=== PATIENT | female | born 1970 | race Caucasian/White ===

== ENCOUNTER 2017-01-05 12:13 | Emergency (ER) | payer BC, MEDICAID ==
--- NOTE | 2017-01-05 12:28 | UC ---
Lower Extremity/Ankle HPI - HPI Summary HPI Summary: pain in ankle left, for over a month after hiking, had an inversion injury painful to wb - History of Current Complaint Stated Complaint: ANKLE INJURY Time Seen by Provider: 01/05/17 12:23 Hx Obtained From: Patient Hx Last Menstrual Period: may 22, 2013 ?: No Onset/Duration: Gradual Onset, Worse Since - inversion injury 01/02/17 Severity Initially: Mild Severity Currently: Moderate Aggravating Factor(s): Standing, Ambulation Alleviating Factor(s): Rest, Elevation Able to Bear Weight: Yes - with pain - Allergies/Home Medications Allergies/Adverse Reactions: Allergies Allergy/AdvReac Type Severity Reaction Status Date / Time Nitrofurantoin Allergy Rash Verified 04/23/16 11:06 [From Macrobid] Sulfamethoxazole Allergy Rash Verified 04/23/16 11:06 w/Trimethoprim [From Bactrim] Home Medications: Home Medications Lisinopril [Zestril 20 MG-] 20 mg PO DAILY 01/05/17 [History Confirmed 01/05/17] PMH/Surg Hx/FS Hx/Imm Hx Previously Healthy: No Endocrine History Of: Reports: Diabetes - type 2 diabetes mellitus - 3rd years. Good ont, Thyroid Disease, Hypothyroidism - She has had primary hypothyroidism 15 years Denies: Hyperthyroidism Cardiovascular History Of: Denies: Cardiac Disorders, Hypertension Respiratory History Of: Reports: Asthma - secondary to allergies Denies: COPD GI/ History Of: Denies: Ulcer Neurological History Of: Denies: TIA, Seizures Psychological History Of: Denies: Anxiety, Depression Cancer History Of: Denies: Breast Cancer - Surgical History Surgical History: Yes Surgery Procedure, Year, and Place: cholecarpel tunnel w/ tendon release (2002 and 2003). Gall bladder removed (2000) - Family History Known Family History: Positive: None - Social History Occupation: Unemployed Lives: With Family Alcohol Use: None Substance Use Type: None Smoking Status (MU): Never Smoked Tobacco Have You Smoked in the Last Year: No Review of Systems Constitutional: Negative Skin: Negative Eyes: Negative ENT: Negative Respiratory: Negative Cardiovascular: Negative Gastrointestinal: Negative Genitourinary: Negative Motor: Negative Musculoskeletal: Arthralgia - left ankle swelling Neurological: Negative Psychological: Negative All Other Systems Reviewed And Are Negative: Yes Physical Exam Triage Information Reviewed: Yes Appearance: Well-Appearing, No Pain Distress, Obese Vital Signs Reviewed: Yes Eye Exam: Normal Eyes: Positive: Conjunctiva Clear ENT Exam: Normal ENT: Positive: Normal ENT inspection, Hearing grossly normal. Negative: Nasal congestion, Nasal drainage, Trismus, Muffled/hoarse voice Neck exam: Normal Neck: Positive: Supple, Nontender, No Lymphadenopathy Respiratory Exam: Normal Respiratory: Positive: Chest non-tender, Lungs clear, Normal breath sounds, No respiratory distress, No accessory muscle use Cardiovascular Exam: Normal Cardiovascular: Positive: RRR, Pulses Normal, Brisk Capillary Refill Musculoskeletal Exam: Normal Musculoskeletal: Positive: Strength Intact, ROM Intact, No Edema Neurological Exam: Normal Neurological: Positive: Alert, Muscle Tone Normal Psychological Exam: Normal Psychological: Positive: Normal Response To Family Skin Exam: Normal Diagnostics - Radiology No standard instances Xray Interpretation: Positive (See Comments) - soft tissue swelling Lower Extremity Course/Dx - Course Course Of Treatment: michael wrap, cam walker, rice follow with ortho - Differential Dx/Diagnosis Differential Diagnosis/HQI/PQRI: Contusion, Fracture (Closed), Sprain, Strain Provider Diagnoses: ankle contusion (L) Discharge - Discharge Plan Condition: Stable Disposition: HOME Patient Education Materials: RICE Therapy (ED), Swollen Ankle Joint (ED), Ankle Strain (ED) Referrals: Cee Briones MD [Medical Doctor] - 3 Days Nicolette Cardona MD [Primary Care Provider] -
[2017-01-05 12:31] VITALS: BP 140/80
--- NOTE | 2017-01-05 13:01 | RAD ---
HISTORY: Injury COMPARISONS: None VIEWS: 3, Frontal, lateral, and oblique views of the left ankle FINDINGS: BONE DENSITY: Normal. BONES: There is no displaced fracture. There are calcaneal enthesophytes JOINTS: There is no arthropathy. ALIGNMENT: There is no dislocation. SOFT TISSUES: There is circumferential soft tissue swelling OTHER FINDINGS: None. IMPRESSION: SOFT TISSUE SWELLING. NO ACUTE OSSEOUS INJURY. IF SYMPTOMS PERSIST, RECOMMEND REPEAT IMAGING.
== END 2017-01-05 13:32 | disposition home or self-care (01) ==
LOC: UCEAST 12:13
DX: S93.402A Sprain of unspecified ligament of left ankle, initial encounter (principal); Y93.01 Activity, walking, marching and hiking; W18.30XA Fall on same level, unspecified, initial encounter; E11.9 Type 2 diabetes mellitus without complications; J45.909 Unspecified asthma, uncomplicated
CPT/HCPCS: 99213; G0463

== ENCOUNTER 2017-10-31 12:06 | Inpatient (IN) | payer BC, MEDICAID ==
--- NOTE | 2017-10-16 20:14 | HP ---
CC: Nicolette Cardona MD * PREOPERATIVE HISTORY AND PHYSICAL: DATE OF ADMISSION: 10/31/17 This patient is scheduled for AA admission by Dr. Kebede on 10/31/17. ATTENDING SURGEON: Evan Kebede MD * (dictated by Ruth Carlin NP). CHIEF COMPLAINT: Colon polyp. HISTORY OF PRESENT ILLNESS: The patient is a 47-year-old morbidly obese female with type [address] Kebede after undergoing evaluation in 2016 for clinical severe obesity. The patient had strongly considered weight loss surgery, but she did put this on hold and is currently pursuing medically supervised weight loss at [facility] for [facility]abolic [facility]ariat[facility]. More recently, she was experiencing intermittent constipation and diarrhea and therefore, underwent colonoscopy. The colonoscopy revealed a tubulovillous adenoma with focal high- grade dysplasia at the hepatic flexure, the lesion was described as 4 cm and polypoid and was tattooed by the colonoscopist. Other biopsies in the right colon, left colon, and rectum showed no pathologic abnormality. She denies abdominal pain or blood per rectum. She is intentionally trying to lose weight. Dr. Kebede examined the patient and reviewed the findings with her and has recommended laparoscopic endoscopic colon polypectomy, possible partial colectomy. Dr. Kebede described the nature of the surgical procedure, the rationale for the procedure, the relevant risks and benefits, the typical hospitalization, and today I reviewed the typical postoperative care and recovery. The patient has had a chance to ask questions and stated that she understands the information and is satisfied with the answers given to her questions. She will sign surgical consent on the day of surgery. She will take a bowel cleansing prep on the day before surgery consisting of clear liquids, Colyte laxative, metronidazole, and Flagyl. PAST MEDICAL HISTORY: Significant for type 2 diabetes, polycystic ovarian syndrome, hypothyroidism, GERD, sleep apnea and cannot tolerate CPAP, hypertension, and asthma. PAST SURGICAL HISTORY: Open cholecystectomy, 2000; right carpal tunnel release , 2002. OB HISTORY: 2, miscarriage 2. She is up-to-date with breast exam, mammogram, and pelvic exam within the past year. Last menstrual cycle started 10/06/17. MEDICATIONS: 1. Metformin 1000 mg p.o. b.i.d., and she will hold the metformin on the day before surgery while she is doing her bowel cleansing prep. 2. Levothyroxine 300 mcg daily. 3. Protonix 40 mg p.o. daily. 4. Sertraline 50 mg p.o. daily. 5. Iron 325 mg daily. 6. Lisinopril 40 mg p.o. daily. 7. Januvia 50 mg p.o. daily. 8. Vitamin D supplement 1000 International Units 2 tablets daily. 9. Nasonex 50 mcg per actuation 2 sprays in each nostril daily. 10. ProAir 2 puffs q.4 hours p.r.n. 11. Clobetasol 0.05%, apply to areas as directed b.i.d. ALLERGIES: BACTRIM and MACROBID, both cause severe sunburn-like rash on her face and arms. FAMILY HISTORY: No known anesthesia complications, bleeding tendencies, or clotting disorders. SOCIAL HISTORY: She is and lives with her adopted children. 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 She denies the use of alcohol or other substances. REVIEW OF SYSTEMS: Constitutional: No fevers, chills, night sweats or excessive fatigue. Endocrine: Type 2 diabetes, most recent hemoglobin A1c 6.5% ; hypothyroidism, on replacement. Hematologic: No easy bruising or bleeding. No history of blood transfusions. Respiratory: No dyspnea on exertion or chronic cough. Cardiovascular: No anginal chest pain or palpitations. Gastrointestinal: No nausea or vomiting; intermittent diarrhea alternating with constipation that led to the colonoscopy and the finding of the tubulovillous adenoma at the hepatic flexure; no blood per rectum. Heartburn controlled with Protonix. Genitourinary: No dysuria. Musculoskeletal: No complaints of back or joint pain. Neurologic: No headache, blurred vision, areas of focal weakness , or numbness. General: No previous anesthesia complications. No history of deep vein thrombosis or pulmonary embolism. PHYSICAL EXAMINATION GENERAL SURVEY: The patient is a 47-year-old morbidly obese female, well developed, in no acute distress. VITAL SIGNS: Height 5 feet 4.5 Inches, weight 266 pounds. Blood pressure 122/ 80, pulse 78 and regular, respiratory rate 18, and temperature 97.9 tympanic. Body mass index 44.9. HEENT: Benign. NECK: Supple. No cervical lymphadenopathy. BACK: No CVA tenderness. LUNGS: Breath sounds bilaterally clear and equal. HEART: Regular rate and rhythm. No murmurs or rubs appreciated. ABDOMEN: Obese. Active bowel sounds. Well-healed right upper quadrant surgical scar and umbilical trocar scar. Soft, nondistended, nontender throughout. No obvious masses, organomegaly, or evidence of ventral hernias. Pelvic and rectal exams done within the past year, not repeated. EXTREMITIES: Warm without edema or skin ulceration. NEUROLOGIC: Alert and oriented x3. Steady gait. SKIN: Warm, dry, and intact. IMPRESSION: Tubulovillous adenoma with focal high-grade dysplasia at the hepatic flexure. PLAN: AA admission to Dr. Kebede's service on 10/31/17 for laparoscopic endoscopic colon polypectomy, possible partial colectomy. The patient will take a preoperative bowel cleansing prep on the day before surgery consisting of clear liquids, Colyte laxative, neomycin, and metronidazole. REBECCA CARLIN NP [id number]/[facility] #: [id number] MORENITA
[~2017-10-31 12:06] MED LIST: Buffered Lidocaine 0.9% SYRIN* 5 ML/SYR SYRINGE INTRADERM ONE; Dexamethasone IV* 4 MG/ML 1 ML (4 MG) IV SLOW PU ONE; ERTApenem(*) 1 GM in NS 0.9% 50 ML* 50 ML IVPB SCH; Famotidine TAB* 20 MG PO ONE
[2017-10-31] MEDS ORDERED: Buffered Lidocaine 0.9% SYRIN* 5 ML/SYR SYRINGE ONE (12:19)
[2017-10-31] MEDS ORDERED: Famotidine IV* 10 MG/ML 2 ML (20 mg) ONE (12:19)
[2017-10-31] MEDS ORDERED: Dexamethasone IV* 4 MG/ML 1 ML (4 MG) ONE (12:19)
[2017-10-31] MEDS ORDERED: Heparin VIAL(*) 5000 UNITS/ML VIAL (FIVE THOUSAND) ONE (12:19)
[2017-10-31] MEDS ORDERED: Midazolam* 1 MG/ML 10 ML VIAL (10 MG) ONE (12:51)
[2017-10-31] MEDS ORDERED: fentaNYL* 50 MCG/ML 5 ML VIAL (250 MCG VIAL) ONE (12:51)
[2017-10-31] MEDS ORDERED: Lidocaine 2% PF * 5 ML VIAL ONE (12:52)
[2017-10-31] MEDS ORDERED: Propofol* 10 MG/ML 20 ML BTL IV PUSH ONE (12:52)
[2017-10-31] MEDS ORDERED: Atracurium* 10 MG/ML 10 ML VIAL ONE (12:52)
[2017-10-31] MEDS ORDERED: Ketorolac INJ* 30 MG/ML 1 ML VIAL ONE (12:52)
[2017-10-31] MEDS ORDERED: Ondansetron INJ* 2 MG/ML VIAL ONE (12:52)
[2017-10-31] MEDS ORDERED: Desflurane* 240 ML INH ONE (13:27)
[2017-10-31] MEDS ORDERED: Bupivacaine 0.25% SDV* 30 ML ONE (13:29)
[2017-10-31] MEDS ORDERED: Glycopyrrolate IV* 0.2 MG/ML 1 ML VIAL ONE (14:05)
[2017-10-31] MEDS ORDERED: Atropine 1MG/ML INJ* 1 ML VIAL ONE (14:35)
[2017-10-31] MEDS ORDERED: fentaNYL* 50 MCG/ML 2 ML VIAL (100 MCG VIAL) ONE ×4 (14:40→19:26)
[2017-10-31] MEDS ORDERED: Ondansetron INJ* 2 MG/ML VIAL IV PRN ×2 (16:13→17:44)
[2017-10-31] MEDS ORDERED: Scopolamine 1.5 mg* PATCH TRANSDERM PRN (16:13)
[2017-10-31] MEDS ORDERED: DiMENhydriNATE IV* 50 MG/ML VIAL IV PUSH PRN (16:13)
--- NOTE | 2017-10-31 17:41 | SURGPN ---
Brief Operative Note - Surgery Procedures: Procedures Pre-OP Diagnoses: Colon polyp Post-op Diagnosis: same Procedure: Laparoscopic assisted Right hemicolectomy Surgeon: Yandy Asst: Rashi Anesthesia: CESILIA Hines EBL: <100cc IVF: 3000cc LR Specimen: R colon Drains: Jimenez
[2017-10-31] MEDS ORDERED: Albuterol HFA INHALER* 8 gm MDI INH PRN (17:48)
[2017-10-31] MEDS ORDERED: HYDROmorphone INJ* 1 MG/ML CARPUJECT SYRINGE ONE (18:04)
[2017-10-31] MEDS ORDERED: DiMENhydriNATE IV* 50 MG/ML VIAL ONE (18:04)
[2017-10-31] MEDS ORDERED: Scopolamine 1.5 mg* PATCH ONE (18:04)
[2017-10-31] MEDS: fentaNYL* 50 MCG/ML 2 ML VIAL (100 MCG VIAL) IV PRN ×4 (18:06→19:34)
[2017-10-31] MEDS ORDERED: Morphine INJ* 2 MG/ML 1 ML SYRINGE (TWO MG - NEW SYRINGE VERSION) IV PRN (18:32)
[2017-10-31] MEDS: HYDROmorphone INJ* 1 MG/ML CARPUJECT SYRINGE IV PRN ×5 (19:08→19:42)
[2017-10-31] MEDS: Heparin VIAL(*) 5000 UNITS/ML VIAL (FIVE THOUSAND) SUBCUT SCH (20:44)
[2017-10-31] MEDS: HYDROcodone/ACETAMIN 5-325 MG* 1 TAB PO PRN (20:51)
[2017-11-01] MEDS: Ketorolac INJ* 30 MG/ML 1 ML VIAL IV PRN ×3 (00:09→21:19)
[2017-11-01] MEDS: HYDROcodone/ACETAMIN 5-325 MG* 1 TAB PO PRN ×5 (01:56→23:27)
[2017-11-01] MEDS: Levothyroxine TAB* 150 MCG TAB PO SCH (05:51)
[2017-11-01] MEDS: Heparin VIAL(*) 5000 UNITS/ML VIAL (FIVE THOUSAND) SUBCUT SCH ×3 (05:52→21:19)
[2017-11-01 06:29] LABS: Hematocrit 33 % (35-47); Hemoglobin 10.9 g/dl (12.0-16.0); Mean Corpuscular HGB Conc 33 g/dl (31-36); Mean Corpuscular Hemoglobin 31 pg (27-31); Mean Corpuscular Volume 93 fL (80-97); Mean Platelet Volume 7 um3 (7.4-10.4); Red Cell Distribution Width 13 % (10.5-15); White Blood Count 13.4 10^3/ul (3.5-10.8)
[2017-11-01 06:36] LABS: Albumin 3.2 g/dL (3.2-5.2); BUN/Creatinine Ratio 22.4 (8-20); Calcium 8.6 mg/dL (8.6-10.3); EGFR African American 121.3 (>60); EGFR Non-African American 94.3 (>60); Globulin 3.1 g/dL (2-4); Potassium 4.1 mmol/L (3.5-5.0); Total Bilirubin 0.4 mg/dL (0.2-1.0); Total Protein 6.3 g/dL (6.4-8.9)
[2017-11-01] MEDS: Omeprazole CAP* 20 MG PO SCH (09:34)
[2017-11-01] MEDS: Sertraline* 50 MG TAB PO SCH (09:34)
--- NOTE | 2017-11-01 12:58 | PN ---
Progress Note - Progress Note Date of Service: 11/01/17 SOAP: Subjective: Pt seen and examined. Feels well. some abdo pain. no flatus. No N/V Objective: af vss uo good a and o x3 abdo: soft/ ND/ incisional tenderness dressing intact no calf tenderness Laboratory Results - last 24 hr 11/01/17 11/01/17 06:06 06:06 WBC 13.4 H RBC 3.50 L Hgb 10.9 L Hct 33 L MCV 93 MCH 31 MCHC 33 RDW 13 Plt Count 198 MPV 7 L Neut % (Auto) 86.9 H Lymph % (Auto) 9.0 L [place] % (Auto) 4.0 Eos % (Auto) 0 Baso % (Auto) 0.1 Absolute Neuts (auto) 11.6 H Absolute Lymphs (auto) 1.2 Absolute Monos (auto) 0.5 Absolute Eos (auto) 0 Absolute Basos (auto) 0 Absolute Nucleated RBC 0.01 Nucleated RBC % 0.1 Sodium 135 Potassium 4.1 Chloride 105 Carbon Dioxide 23 Anion Gap 7 BUN 15 Creatinine 0.67 Est GFR ( Amer) 121.3 Est GFR (Non-Af Amer) 94.3 BUN/Creatinine Ratio 22.4 H Glucose 143 H Calcium 8.6 Total Bilirubin 0.40 AST 16 ALT 18 Alkaline Phosphatase 71 Total Protein 6.3 L Albumin 3.2 Globulin 3.1 Albumin/Globulin Ratio 1.0 Assessment: [POD 1 R hemicolectomy Plan: clears OOB labs in am f/u path
[2017-11-02 05:44] LABS: Hematocrit 29 % (35-47); Hemoglobin 9.8 g/dl (12.0-16.0); Mean Corpuscular HGB Conc 34 g/dl (31-36); Mean Corpuscular Hemoglobin 32 pg (27-31); Mean Corpuscular Volume 93 fL (80-97); Mean Platelet Volume 7 um3 (7.4-10.4); Red Blood Count 3.12 10^6/ul (4.0-5.4); Red Cell Distribution Width 13 % (10.5-15); White Blood Count 7.9 10^3/ul (3.5-10.8)
[2017-11-02] MEDS: Levothyroxine TAB* 150 MCG TAB PO SCH (05:53)
[2017-11-02] MEDS: HYDROcodone/ACETAMIN 5-325 MG* 1 TAB PO PRN ×2 (05:53→15:42)
[2017-11-02] MEDS: Heparin VIAL(*) 5000 UNITS/ML VIAL (FIVE THOUSAND) SUBCUT SCH ×3 (05:54→22:07)
[2017-11-02 05:57] LABS: BUN/Creatinine Ratio 17.6 (8-20); Calcium 8.3 mg/dL (8.6-10.3); EGFR African American 119.3 (>60); EGFR Non-African American 92.7 (>60); Magnesium 1.8 mg/dL (1.9-2.7); Phosphorus 2.3 mg/dL (2.5-5.0); Potassium 3.4 mmol/L (3.5-5.0)
[2017-11-02] MEDS ORDERED: Potassium Phosphate IV* 15 MMOLE in NS 0.9% 250 ML* 250 ML IVPB ONE (08:39)
[2017-11-02] MEDS: Sertraline* 50 MG TAB PO SCH (09:17)
[2017-11-02] MEDS: Omeprazole CAP* 20 MG PO SCH (09:17)
[2017-11-02] MEDS: Ketorolac INJ* 30 MG/ML 1 ML VIAL IV PRN ×2 (09:21→15:41)
--- NOTE | 2017-11-02 09:33 | PN ---
Progress Note - Progress Note Date of Service: 11/02/17 SOAP: Subjective: POD #2 S/P lap assisted Right colectomy tolerating clears,no nausea,no flatus up walking,using inspiron,good pain control [] Objective:afeb,VSS,large uo lungs:clear bilat heart:RRR Abd:+bs,obese,soft;midline incision intact with mely,no erythema,serosanguinous drainage soaked 4x4's; dressing changed ,sterile 4x4's applied;all other incisions intact and covered with tegaderm Ext:nontender,no edema [] Assessment:Doing well POD#2 S/P lap R colectomy [] Plan:continue clear liquids until passes flatus;watch midline incision; encourage walking and inspiron []
[2017-11-02] MEDS ORDERED: Magnesium Sulfate 1 GM IV* 1 GM/100 ML BAG IV ONE ×2 (14:30→14:45)
--- NOTE | 2017-11-02 15:31 | PN ---
Progress Note - Progress Note Date of Service: 11/02/17 SOAP: Subjective: Pt seen and examined. Feels well. some abdo pain. Positive flatus, BM no nausea. Dressing changed and continues to drain. No lightheadedness, dizziness Objective: af vss a and o x3 abdo: soft/ ND/ incisional tenderness dressing changed at midline, serosang drainage. no calf tenderness Laboratory Results - last 24 hr 11/02/17 11/02/17 05:22 05:22 WBC 7.9 RBC 3.12 L Hgb 9.8 L Hct 29 L MCV 93 MCH 32 H MCHC 34 RDW 13 Plt Count 159 MPV 7 L Sodium 134 Potassium 3.4 L Chloride 104 Carbon Dioxide 26 Anion Gap 4 BUN 12 Creatinine 0.68 Est GFR ( Amer) 119.3 Est GFR (Non-Af Amer) 92.7 BUN/Creatinine Ratio 17.6 Glucose 119 H Calcium 8.3 L Phosphorus 2.3 L Magnesium 1.8 L Assessment: POD2 r hemicolectomy, Plan: advance diet abdo binder replete lytes change IVF labs in am
[2017-11-02] MEDS ORDERED: D5W 1/2 NS 40 Meq KCL 1000 ML* 1,000 ML IV SCH (16:00)
[2017-11-02] MEDS: metFORMIN* 1,000 MG TAB PO SCH (22:07)
[2017-11-03] MEDS: HYDROcodone/ACETAMIN 5-325 MG* 1 TAB PO PRN ×2 (01:59→08:18)
[2017-11-03] MEDS: Levothyroxine TAB* 150 MCG TAB PO SCH (05:26)
[2017-11-03] MEDS: Heparin VIAL(*) 5000 UNITS/ML VIAL (FIVE THOUSAND) SUBCUT SCH (05:26)
[2017-11-03 05:38] LABS: Hematocrit 29 % (35-47); Hemoglobin 9.9 g/dl (12.0-16.0); Mean Corpuscular HGB Conc 34 g/dl (31-36); Mean Corpuscular Hemoglobin 32 pg (27-31); Mean Corpuscular Volume 92 fL (80-97); Mean Platelet Volume 7 um3 (7.4-10.4); Red Blood Count 3.13 10^6/ul (4.0-5.4); Red Cell Distribution Width 13 % (10.5-15); White Blood Count 7.6 10^3/ul (3.5-10.8)
[2017-11-03 05:51] LABS: BUN/Creatinine Ratio 13.1 (8-20); Calcium 8.4 mg/dL (8.6-10.3); EGFR African American 135.2 (>60); EGFR Non-African American 105.1 (>60); Potassium 3.9 mmol/L (3.5-5.0)
[2017-11-03] MEDS: metFORMIN* 1,000 MG TAB PO SCH (08:19)
[2017-11-03] MEDS: Sertraline* 50 MG TAB PO SCH (08:19)
[2017-11-03] MEDS: Omeprazole CAP* 20 MG PO SCH (08:19)
[2017-11-03] MEDS ORDERED: CMCS SitaGLIPtin (NF) 25 MG TAB PO SCH (09:00)
--- NOTE | 2017-11-03 10:45 | PN ---
Progress Note - Progress Note Date of Service: 11/03/17 Note: Surgery Ms. Meyers is feeling well enough to go home, she has not needed anything for pain other than a headache; she is passing flatus and stool. She has tolerated a full liquid diet. Vital Signs 11/02/17 11/02/17 11/02/17 11:20 15:42 16:00 Temperature 97.2 F Pulse Rate 64 Respiratory 14 16 Rate Blood Pressure 129/63 (mmHg) O2 Sat by Pulse 96 99 Oximetry 11/02/17 11/02/17 11/02/17 16:50 19:32 19:42 Temperature 99.2 F 97.6 F Pulse Rate 72 63 Respiratory 16 16 16 Rate Blood Pressure 146/82 149/68 (mmHg) O2 Sat by Pulse 99 97 Oximetry 11/02/17 11/03/17 11/03/17 23:22 01:59 03:17 Temperature 98.1 F 98.2 F Pulse Rate 77 68 Respiratory 16 18 16 Rate Blood Pressure 146/73 133/56 (mmHg) O2 Sat by Pulse 94 93 Oximetry 11/03/17 11/03/17 11/03/17 04:06 08:08 08:18 Temperature 97.5 F Pulse Rate 66 Respiratory 18 16 16 Rate Blood Pressure 147/73 (mmHg) O2 Sat by Pulse 99 Oximetry Abd: good BS, soft, non-tender. Incisions: clean and dry; no further drainage from midline site. Intake & Output 11/02/17 11/03/17 11/03/17 22:59 06:59 14:59 Intake Total 1665 Output Total 1150 900 900 Balance 515 -900 -900 Intake: IV Fluids 980 LR 980 IVPB 475 Magnesium 220 Potassium Phosphate 255 Oral 210 Output: NG Tube Drainage Amount 50 Urine 1100 900 900 Other: Estimated Void Medium Laboratory Results - last 24 hr 11/03/17 11/03/17 05:23 05:23 WBC 7.6 RBC 3.13 L Hgb 9.9 L Hct 29 L MCV 92 MCH 32 H MCHC 34 RDW 13 Plt Count 171 MPV 7 L Neut % (Auto) 67.5 Lymph % (Auto) 24.1 L [place] % (Auto) 3.7 Eos % (Auto) 4.2 Baso % (Auto) 0.5 Absolute Neuts (auto) 5.1 Absolute Lymphs (auto) 1.8 Absolute Monos (auto) 0.3 Absolute Eos (auto) 0.3 Absolute Basos (auto) 0 Absolute Nucleated RBC 0 Nucleated RBC % 0 Sodium 137 Potassium 3.9 Chloride 107 Carbon Dioxide 25 Anion Gap 5 BUN 8 Creatinine 0.61 Est GFR ( Amer) 135.2 Est GFR (Non-Af Amer) 105.1 BUN/Creatinine Ratio 13.1 Glucose 130 H Calcium 8.4 L POD#3 s/p lap assisted right hemicolectomy; doing well. Can go home and f/u as outpt.
[2017-11-03 11:59] VITALS: BP 148/74
[2017-11-03] MEDS ORDERED: Scopolamine PATCH Remove* 1 NOTE MISC PATCH OFF ONE (16:14)
--- NOTE | 2017-11-07 00:03 | OP ---
CC: [facility]; Dr. Nicolette Cardona; Dr. Jsoe Turner * DATE OF OPERATION: 10/31/17 - ROOM #342 DATE OF : 70 SURGEON: Evan Kebede MD IV RN: Dr. Markham. ANESTHESIOLOGIST: Dr. Hines. ANESTHESIA: General anesthesia. PRE-OP DIAGNOSIS: Colon polyp. POST-OP DIAGNOSIS: Colon polyp. OPERATIVE PROCEDURE: Laparoscopic-assisted right hemicolectomy. ESTIMATED BLOOD LOSS: Less than 100 cc. IV FLUIDS: 3000 cc of lactated Ringers. SPECIMENS: Right colon. DRAINS: A Jimenez catheter. INDICATION: Ms. Meyers is a 47-year-old female, worked up as an outpatient, known to have a tubulovillous adenoma at the hepatic flexure that was tattooed. Plan was for a combined laparoscopic endoscopic removal. On the day of surgery, it was apparent that we did not have colonoscopy availability; however , given the pathologic findings of the colonoscopy to be tubulovillous adenoma with focal high- grade dysplasia at 4 cm in size, the thinking was that the patient would be best served with either a segmental colectomy or a polypectomy that was taken out under direct vision rather than endoscopic vision. I described this to the patient and we received consent for laparoscopic-assisted polypectomy versus segmental colectomy outlining the details of this procedure. DESCRIPTION OF PROCEDURE: The patient was then marked and brought to the operating room, placed on the operating table in supine position. Preoperative antibiotics were given. Sequential devices were placed on bilateral lower extremities. General anesthesia was induced. A Jimenez catheter was then inserted and the patient's abdomen was prepped and draped in the standard surgical fashion and a time-out was performed. A supraumbilical incision was made. This was deepened down to the anterior fascia which was elevated and incised and a direct cut down into the abdominal cavity was made. The 12 mm trocar was then inserted at this site. Laparoscope was inserted and there was no evidence of injury from the trocar insertion. Liver appeared intact without lesion. There was no free fluid. The small bowel appeared intact. Additional trocars were then placed in the following position: A 5 mm in the suprapubic area and a 5 mm in the left lower quadrant. We reviewed the abdomen and lifted up the transverse colon. This appeared quite floppy and redundant as did the cecum. The blue dye was clearly identified at the hepatic flexure as we anticipated. A dissection then started out at the area of the appendix. The mesentery of the appendix was retracted medially and this allowed us to open up the white line of Toldt with electrocautery. We extended this superiorly up towards the hepatic flexure. We also looked at the pelvic rim which did not require any dissection as the small bowel did not adhere to this area, but rather was free floating. Next, attention was turned towards the transverse colon. The omentum was freed up from the transverse colon with Liga-Sure device. I also should note that we did start the case by taking omental attachments off the anterior abdominal wall from previous open cholecystectomy. This did not take time, but the edge of the liver was also involved in the attachments to the omentum and this was left alone. By splitting them off of the transverse colon, we identified the transverse mesentery and extended our dissection laterally to meet with the lateral dissection. The duodenum was identified and protected. We ultimately got the lesion and the hepatic flexure up and mobilized with the midline. Once this was performed, the incision at the umbilicus was extended superiorly. This was deepened down through all the layers of the abdominal wall and an Aj wound protector was inserted. We then brought the colon out through this incision and reviewed the distal ileum as well as the appendix and colon. The lesion was identified through the wall of the colon, but there was also bulky areas at the cecum and I made the decision given the known pathology to just perform a segmental colectomy without opening up the colon on the table to reduce chance for infection. Points were chosen both on the small bowel and on the transverse colon. 80-mm LEONARDO staplers were fired across these two sites. The mesentery was taken with LigaSure device and the specimen was passed off. Next, an anastomosis was created by putting the small bowel in the colon in apposition to one another. With bowel clamps in place, enterotomy and colotomy were made at the staple lines and the anastomosis was created with an 80-mm LEONARDO stapling device, blue load; defect was closed with a 60-mm TA blue load stapling device and the staple lines were dunked at the corners with 2-0 silk sutures. We then dropped the colon back into the abdomen. The Aj was removed. We opened up the specimen on the back table and the polyp was identified. Abdomen was then closed with a #1 Stratafix PDS in a knotless fashion. The wound was then irrigated and skin mely applied. Next, we reinsufflated the abdomen, camera was inserted. There was no evidence of intraabdominal contents pulled into the suture line at the mid line. There was no evidence of bleeding. The abdomen was allowed to collapse. Trocars were removed under direct vision and the additional port sites were reapproximated with skin mely. It should also be noted there was an additional upper abdominal 5-mm port placed during the time of the dissection. The patient was woken up on the OR table and transferred to the PACU in stable condition. [id number]/[facility] #: [id number] MTDD
== END 2017-11-03 13:00 | disposition home or self-care (01) | DRG 221 ==
LOC: AA 12:06 → SSU 20:32
PROVIDERS: ADMIT Surgery; ATTEND Surgery
PROC: 0DTF4ZZ Resection of Right Large Intestine, Percutaneous Endoscopic Approach (ICD-10-PCS; principal; 2017-10-31 13:15)
DX: C18.3 Malignant neoplasm of hepatic flexure (principal); Z68.41 Body mass index [BMI] 40.0-44.9, adult; E66.01 Morbid (severe) obesity due to excess calories; E11.9 Type 2 diabetes mellitus without complications; E28.2 Polycystic ovarian syndrome; E03.9 Hypothyroidism, unspecified; K21.9 Gastro-esophageal reflux disease without esophagitis; I10 Essential (primary) hypertension; G47.33 Obstructive sleep apnea (adult) (pediatric); J45.909 Unspecified asthma, uncomplicated; Z88.8 Allergy status to other drugs, medicaments and biological substances; Z88.1 Allergy status to other antibiotic agents; Z79.890 Hormone replacement therapy; Z79.84 Long term (current) use of oral hypoglycemic drugs; R51 Headache
CPT/HCPCS: 36415; 80048; 80053; 81025; 83735; 84100; 85025; 85027; 88307; 94760; A9270-GY; C1776; J0461; J1100; J1170; J1240; J1335; J1644; J1885; J2250; J2405; J2704; J3010; J3475

== ENCOUNTER 2019-01-25 07:46 | Emergency (ER) | payer BC, MEDICAID ==
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
[2019-01-25 08:06] VITALS: BP 94/64
== END 2019-01-25 08:50 | disposition home or self-care (01) ==
LOC: UCEAST 07:46
DX: M25.511 Pain in right shoulder (principal); E11.9 Type 2 diabetes mellitus without complications; Z79.84 Long term (current) use of oral hypoglycemic drugs; E03.9 Hypothyroidism, unspecified; I10 Essential (primary) hypertension; F41.9 Anxiety disorder, unspecified; F32.9 Major depressive disorder, single episode, unspecified; Z88.1 Allergy status to other antibiotic agents; Z88.2 Allergy status to sulfonamides
CPT/HCPCS: 99212; G0463

== ENCOUNTER 2019-08-20 07:25 | Observation (INO) | payer BC, MEDICAID ==
--- NOTE | 2019-08-11 19:54 | HP ---
CC: [facility] * ADMISSION HISTORY AND PHYSICAL: DATE OF ADMISSION: 08/20/19 ATTENDING SURGEON: Dr. Brandon Kebede * (dictated by VALENTINO Bunch) CHIEF COMPLAINT: Ventral incisional hernia. HISTORY OF PRESENT ILLNESS: This is a 49-year-old female who had undergone laparoscopic assisted right colectomy for colon polyps in October 2017. Her postoperative course was complicated by a wound infection in the upper midline incision. This was treated with a wound VAC. Beginning about 6 months ago, she noted development of a bulge which has gradually increased in size. She describes some tenderness, particularly if she is leaning against the bulge. She has not had any significant GI symptoms, specifically nausea, vomiting, or change in bowels. She was seen in the office by Dr. Kebede on 07/08/19 and again today. He has reviewed with her the indications for surgery, the risks, benefits, and alternatives, and she would like to proceed as scheduled with open repair of ventral incisional hernia with mesh. PAST MEDICAL HISTORY: 1. Type 2 diabetes. 2. Hypertension. 3. Morbid obesity. 4. GERD. 5. PCOS. 6. Hypothyroidism. 7. PMS. 8. Allergies and asthma. 9. Iron deficiency anemia. 10. Rosacea. PAST SURGICAL HISTORY: Include: 1. Lap assisted right colectomy as noted above (pathology showed 2 tubulovillous adenomas with dysplasia, but no invasion; margins and lymph nodes all clear). 2. She underwent laparoscopic converted to an open cholecystectomy. 3. She has undergone right carpal tunnel release and tendon repair. No other reported surgical or anesthesia complications. CURRENT MEDICATIONS: 1. Sertraline 50 mg once daily. 2. Protonix 40 mg once daily. 3. Levothyroxine 300 mcg once daily. 4. Metformin 1000 mg b.i.d. 5. Lisinopril 40 mg once daily. 6. Januvia 100 mg once daily. 7. Nasonex nasal spray p.r.n. (not currently using). 8. Clobetasol 0.05% p.r.n. for rosacea. 9. ProAir HFA, MDI 2 puffs p.r.n. (uses infrequently). 10. Ferrous sulfate 325 mg once daily. 11. Ibuprofen 200 mg 4 tablets b.i.d. p.r.n. for right rotator cuff pain. FAMILY HISTORY: Family history is negative anesthesia problems, bleeding, or clotting disorders. SOCIAL HISTORY: The patient is . She has 4 boys to live at home with her. 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 She denies use of tobacco, alcohol or other recreational drugs. REVIEW OF SYSTEMS: General: No constitutional symptoms or acute illnesses other than described in the HPI. She states that her weight is down approximately 25 pounds in the past 6 months, largely intentional and for the purpose of improved diabetes management. HEENT: No problems reported. Cardiovascular: No history of chest pain, palpitations, or heart murmur. Respiratory: No recent exacerbations of her asthma or allergies. GI: GERD symptoms, well controlled on Protonix. No other problems reported. She has been advised to be in touch with the owner operator regarding recommended surveillance colonoscopy. : No problems reported. 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 Endocrine: Her most recent A1c is 7.1, down from 9. She was treated for hypothyroidism. Musculoskeletal: She had a recent right rotator cuff tear but is managing fairly well. She had been scheduled for surgery, but that has been postponed due to the current problem. PHYSICAL EXAMINATION GENERAL: Well-nourished, well-developed obese female in no acute distress. VITAL SIGNS: Height 5 feet 5 inches, weight 255 pounds, blood pressure 128/80, pulse 60, respirations 16. HEENT: Unremarkable. Mucous membranes moist. Conjunctivae pink. No intraoral lesions. Teeth in good repair. NECK: No lymphadenopathy, no thyromegaly, no masses. LUNGS: Clear to auscultation. No rales or wheezes. HEART: Regular rate and rhythm. No murmur appreciated. ABDOMEN: Well-healed surgical scars including an upper midline incision. In the supine position, there is a bulge present which feels partially reducible, though with ill-defined borders in terms of the fascia. Upon sitting up, there is a larger bulge measuring approximately 8 cm in diameter. The remainder of the abdomen is soft, nontender without palpable masses or organomegaly. GENITALIA: Not done. RECTAL: Not done. BACK: No spinous process or CVA tenderness. EXTREMITIES: No edema. NEUROLOGICAL: Grossly intact. SKIN: Warm and dry. No suspicious rashes or lesions. IMPRESSION: Ventral incisional hernia. PLAN: Open repair of ventral incisional hernia with mesh. VALENTINO BUNCH [id number]/[facility] #: [id number] [facility]
[~2019-08-20 07:25] MED LIST changes: -Buffered Lidocaine 0.9% SYRIN* 5 ML/SYR SYRINGE INTRADERM ONE; +Buffered Lidocaine 1% SYRIN* 1 ML/SYRINGE INTRADERM ONE; -Dexamethasone IV* 4 MG/ML 1 ML (4 MG) IV SLOW PU ONE; -ERTApenem(*) 1 GM in NS 0.9% 50 ML* 50 ML IVPB SCH; +Famotidine IV* 10 MG/ML 2 ML (20 mg) IV ONE; -Famotidine TAB* 20 MG PO ONE; +Lactated Ringers 1000 ML Bag* 1,000 ML IV SCH
[2019-08-20] MEDS ORDERED: ceFAZolin 2 GM in NS PREMIX(*) 2 GM/100 ML BAG IVPB ONE (07:46)
[2019-08-20] MEDS ORDERED: Famotidine IV* 10 MG/ML 2 ML (20 mg) ONE (07:46)
[2019-08-20] MEDS ORDERED: Midazolam* 1 MG/ML 5 ML VIAL (5 MG) ONE (08:06)
[2019-08-20] MEDS ORDERED: Lidocaine 1% INJ* 10 MG/ML 30 ML SDV ONE (08:31)
[2019-08-20] MEDS ORDERED: Bupivacaine 0.25% EPI 200,000* 30 ML SDV ONE (08:31)
[2019-08-20] MEDS ORDERED: DiMENhydriNATE IV* 50 MG/ML VIAL IV PUSH PRN (08:45)
[2019-08-20] MEDS ORDERED: Naloxone* 0.4 MG/ML 1 ML VIAL IV PRN (08:45)
[2019-08-20] MEDS ORDERED: Acetaminophen IV 1GM/100ML * 1,000 MG/100 ML VIAL IVPB ONE (08:45)
[2019-08-20] MEDS ORDERED: fentaNYL* 50 MCG/ML 2 ML VIAL (100 MCG VIAL) ONE ×2 (08:56→09:20)
[2019-08-20] MEDS ORDERED: Ondansetron INJ* 2 MG/ML VIAL ONE (09:19)
[2019-08-20] MEDS ORDERED: Propofol* 10 MG/ML 20 ML BTL ONE (09:19)
[2019-08-20] MEDS ORDERED: Ketorolac INJ* 30 MG/ML 1 ML VIAL ONE (09:19)
[2019-08-20] MEDS ORDERED: Dexamethasone IV* 4 MG/ML 1 ML (4 MG) ONE (09:19)
[2019-08-20] MEDS ORDERED: Lidocaine 2% PF * 5 ML VIAL ONE (09:19)
[2019-08-20] MEDS ORDERED: DiMENhydriNATE IV* 50 MG/ML VIAL ONE (09:19)
[2019-08-20] MEDS ORDERED: Succinylcholine* 20 MG/ML 10 ML VIAL ONE (09:19)
[2019-08-20] MEDS ORDERED: Glycopyrrolate IV* 0.2 MG/ML 1 ML VIAL ONE (09:30)
[2019-08-20] MEDS ORDERED: HYDROmorphone INJ1* 1 MG/ML SYRINGE ONE ×2 (10:15→13:08)
[2019-08-20] MEDS ORDERED: Rocuronium* 10 MG/ML VIAL ONE (10:53)
[2019-08-20] MEDS ORDERED: Acetaminophen IV 1GM/100ML * 100 ML ONE (12:36)
[2019-08-20] MEDS: HYDROmorphone INJ1* 1 MG/ML SYRINGE IV PRN ×5 (13:10→14:15)
[2019-08-20] MEDS ORDERED: Docusate CAP* 100 MG PO PRN (14:28)
[2019-08-20] MEDS ORDERED: Acetaminophen TAB* 325 MG PO PRN (14:28)
[2019-08-20] MEDS ORDERED: Ondansetron INJ* 2 MG/ML VIAL IV PRN ×2 (14:28→17:37)
[2019-08-20] MEDS ORDERED: HYDROmorphone INJ1* 1 MG/ML SYRINGE IV SLOW PU PRN ×2 (14:28→17:37)
[2019-08-20] MEDS ORDERED: Albuterol HFA INHALER* 8 gm MDI INH PRN (14:36)
[2019-08-20] MEDS ORDERED: Dextrose 50% VIAL 50 ml IV PUSH PRN (14:47)
[2019-08-20] MEDS: Lactated Ringers 1000 ML Bag* 1,000 ML IV SCH (16:37)
[2019-08-20] MEDS: HYDROmorphone INJ* 0.5 MG/0.5 ML SYRINGE IV SLOW PU PRN (16:37)
--- NOTE | 2019-08-20 17:37 | OP ---
Operative Report - Blank - Operative Report Date of Operation: 08/20/19 Note: Pre-OP Diagnoses: Clinically severe obesity Post-op Diagnosis: same Procedure: Laparoscopic Kamini an Y gastric bypass Surgeon: Yandy Asst: Rashi Anethesia: CESILIA Mendiola EBL: 150cc IVF: 2500cc LR Specimen: none Drains: #10 ERIC
[2019-08-20] MEDS: Insulin LISPRO* 1 UNITS UNIT SUBCUT SCH ×2 (17:43→20:43)
[2019-08-20] MEDS: Ketorolac INJ* 30 MG/ML 1 ML VIAL IV SCH (17:44)
[2019-08-20] MEDS ORDERED: Lactated Ringers 1000 ML Bag* 1,000 ML IV SCH (18:00)
[2019-08-20] MEDS ORDERED: Ketorolac INJ* 30 MG/ML 1 ML VIAL IV SCH (18:00)
--- NOTE | 2019-08-20 20:41 | OP ---
Operative Report - Blank - Operative Report Date of Operation: 08/20/19 Note: Pre-OP Diagnoses: ventral incisional hernia Post-op Diagnosis: same Procedure: Exploratory laparotomy, POLO, mesh repair of ventral hernia Surgeon: Yandy Asst: Deb Anethesia: CESILIA Osorio EBL: 80cc IVF: see report Specimen: 1. hernia sac 2. skin scar Drains: 2 #7 ERIC in subq space Complications: None
[2019-08-20] MEDS: oxyCODONE/Acetamin 5/325 MG* TAB PO PRN (20:42)
[2019-08-20] MEDS ORDERED: Famotidine IV* 10 MG/ML 2 ML (20 mg) IV SLOW PU SCH (21:00)
--- NOTE | 2019-08-20 23:43 | OP ---
CC: [facility] * DATE OF OPERATION: 08/20/19 - ROOM #335 DATE OF : 70 SURGEON: Evan Kebede MD. ROLL TENDER: VALENTINO Mckeon. ANESTHESIOLOGIST: Dr. Osorio. ANESTHESIA: General. PRE-OP DIAGNOSIS: Ventral incisional hernia. POST-OP DIAGNOSIS: Ventral incisional hernia. PROCEDURE: Exploratory laparotomy, mesh repair of incisional hernia. ESTIMATED BLOOD LOSS: Under 100 cc. FLUIDS: Crystalloid fluids given. Please see separate report for details. SPECIMENS: 1. Hernia sac. 2. Surgical skin scar. DRAIN: Two #7 ERIC drains left in the subcutaneous space. DESCRIPTION OF PROCEDURE: The patient was identified in the preoperative area. Abdomen was marked. Consent was signed. She was taken to the operating room, placed on the operating table in a supine position. Preoperative antibiotics were given. Sequential devices were placed on bilateral lower extremities. General anesthesia was induced. The patient's abdomen was prepped and draped in a standard surgical fashion. A time-out was performed. Just right of her midline scar, we incised with a 10-blade through the entire scar, and then beyond it approximately 3 cm and above it, approximately 3 cm. This was deepened down through the subcutaneous fat on to a scar. Both sharp and blunt dissection was carried out superiorly to expose the abdominal wall above the hernia sac. We dissected through the subcutaneous fat to identify the fascial layers both on lateral and medial side. The inferior aspect did head towards the umbilicus, but it seemed to not involve it. We isolated the fascia inferiorly and then appreciated the defect to be approximately a 5 cm [place]. Next, we opened up the hernia sac and entered into the abdomen. There was no free fluid. Bowel appeared intact. There were omental attachments to the hernia sac and just superior to this. These were lysed with cautery, took care not to injure any bowel. We then protected the bowel and then debrided the sac and passed it off as specimen. Next, I made an attempt to clear out the posterior rectus plane. We did this successfully on the left side, but had a difficult time showing this on the right and we entered through the peritoneum on multiple occasions to the point where we made decisions just do an underlay mesh into the peritoneum with a Ventrio ST Hernia mesh by [employer]. We did dissect laterally to release the fascia as best we could. I did not make relaxing incisions, however, as I felt the edges of the defect would come together. We did release the umbilicus from the abdominal wall so that we can get good dissection inferiorly and then we utilized a 13 x 8 cm by 17 x [address] hernia mesh. This was parachuted into the abdomen after placing #1 Prolene sutures at 4 corners. We sutured these ends and the mesh appeared in the appropriate fashion. We then used a SecureStrap entering into the pocket of the mesh and tacking it at centimeter intervals throughout the full circumference, making sure that we stayed on the abdominal wall with the mesh intact, and then primarily closed the fascia with # 1 looped PDS sutures starting inferiorly and superiorly. We tied this in the middle, then irrigated, and hemostasis was achieved. Next, we placed two #7 ERIC drains with separate stab incisions in the subcutaneous space. We then tacked the umbilical skin down with 2- 0 Vicryl suture, again irrigated and then turned our attention to the scar. This was incised and passed off as a second specimen. We then reapproximated the skin incision with mely, followed by sterile dressing. The patient tolerated the procedure well, was woken up, and transferred to the PACU in stable condition. [id number]/[facility] #: [id number] MORENITA
[2019-08-21] MEDS: Ketorolac INJ* 30 MG/ML 1 ML VIAL IV SCH ×5 (00:09→23:41)
[2019-08-21] MEDS: HYDROmorphone INJ* 0.5 MG/0.5 ML SYRINGE IV SLOW PU PRN (00:15)
[2019-08-21] MEDS: Lactated Ringers 1000 ML Bag* 1,000 ML IV SCH ×2 (05:32→18:05)
[2019-08-21] MEDS: oxyCODONE/Acetamin 5/325 MG* TAB PO PRN ×5 (05:34→22:15)
[2019-08-21] MEDS: Levothyroxine TAB* 150 MCG TAB PO SCH (05:35)
[2019-08-21] MEDS ORDERED: Heparin VIAL(*) 5000 UNITS/ML VIAL (FIVE THOUSAND) SUBCUT SCH (07:00)
--- NOTE | 2019-08-21 08:32 | OP ---
Operative Report - Blank - Operative Report Date of Operation: 08/20/19
[2019-08-21] MEDS ORDERED: Influenza VAC *QUAD* 2019-20* 0.5 ML SYRINGE IM ONE (09:00)
[2019-08-21] MEDS: Lisinopril TAB* 10 MG PO SCH (09:21)
[2019-08-21] MEDS: Sertraline* 50 MG TAB PO SCH (09:21)
[2019-08-21] MEDS: Pantoprazole TAB * 40 MG TAB PO SCH (09:21)
[2019-08-21] MEDS: Insulin LISPRO* 1 UNITS UNIT SUBCUT SCH ×4 (09:21→21:43)
[2019-08-21] MEDS: SitaGLIPtin (NF) 100 MG TAB PO SCH (09:23)
--- NOTE | 2019-08-21 11:31 | PN ---
Progress Note - Progress Note Date of Service: 08/21/19 SOAP: Subjective: Pt comfortable in chair, C/O dizziness after walking this AM not dizzy now. ? if from pain meds. - Flatus, No N/V [] Objective: Temp Pulse Resp BP Pulse Ox 98.2 F 69 20 113/50 98 08/21/19 08:12 08/21/19 08:12 08/21/19 09:22 08/21/19 08:12 08/21/19 08:12 Intake & Output 08/20/19 08/21/19 08/21/19 22:59 06:59 14:59 Intake Total 200 240 Output Total 290 350 600 Balance -290 -150 -360 Chest: CTA B/L CVS: RRR ABD: Obese, dressings intact, small stain on midline dressing ERIC drains with bloody output[]. - BS's Assessment: Stable POD 1 S/P Open Ventral Hernia repair with mesh by Dr Kebede [] Plan: Continue observation. ERIC drain care instruction. SCD's when in bed, IS, deep breathing was encouraged. Patient was also seen this AM by Dr Kebede.[]
[2019-08-21] MEDS ORDERED: D5W 1/2 NS KCl 20 Meq 1000 ML* 1,000 ML IV SCH (17:38)
[2019-08-22] MEDS: Levothyroxine TAB* 150 MCG TAB PO SCH (05:47)
[2019-08-22] MEDS: Ketorolac INJ* 30 MG/ML 1 ML VIAL IV SCH ×2 (05:48→11:43)
[2019-08-22] MEDS: SitaGLIPtin (NF) 100 MG TAB PO SCH (09:13)
[2019-08-22] MEDS: Lisinopril TAB* 10 MG PO SCH (09:24)
[2019-08-22] MEDS: Pantoprazole TAB * 40 MG TAB PO SCH (09:25)
[2019-08-22] MEDS: Sertraline* 50 MG TAB PO SCH (09:25)
[2019-08-22] MEDS: oxyCODONE/Acetamin 5/325 MG* TAB PO PRN (09:25)
[2019-08-22] MEDS: Insulin LISPRO* 1 UNITS UNIT SUBCUT SCH ×2 (09:25→13:39)
--- NOTE | 2019-08-22 13:01 | DS ---
AMENDED REPORT NOW INCLUDES DESIGNATED COSIGNER CC: Suzanna Yeung * DISCHARGE SUMMARY: DATE OF ADMISSION: 08/20/19 DATE OF DISCHARGE: 08/22/19 ATTENDING SURGEON: Evan Kebede MD * (DICTATED BY REBECCA CARLIN NP) HOSPITAL COURSE: Please refer to admission history and physical for admission details. The patient was taken to the operating room on 08/20/19, and underwent exploratory laparotomy, lysis of adhesions and mesh repair of a ventral hernia. She has had an uneventful postoperative course and required hospitalization for pain management and ERIC drain management and teaching. As of the morning of discharge, she was on a consistent carbohydrate diet and tolerating that well, she was ambulating and using her Inspiron and had good pain control with oral analgesics. She was voiding in large quantities and denied any dysuria. She is an insulin- dependent diabetic and her fingerstick blood sugar on the morning of discharge was 137. PHYSICAL EXAMINATION: General: Well nourished and in no acute distress. Vital Signs. Temperature 98.2, heart rate 62, respiratory rate 18, O2 saturation on room air 100%, blood pressure 120/58. Lungs: Breath sounds bilaterally clear and equal. Heart: Regular rate and rhythm. No murmurs or rubs. Abdomen: Active bowel sounds; obese; midline incision intact with surgical mely, no infection; 2 Jesus De Los Santos drains, one on the left and one on the right lower abdomen. Both are draining moderate amount of sanguineous drainage. The exit sites are clean and dry without any signs of infection; all of the sterile dry dressings were replaced today. Bowel sounds are present and there is appropriate incisional tenderness but her abdomen is soft. Extremities : Nontender calves. No edema. IMPRESSION: Postop day #2, status post exploratory laparotomy, lysis of adhesions, and mesh repair of ventral hernia; doing well. CONDITION: Stable. PLAN: Discharged home today; she will resume her usual medications. She has a followup appointment with Dr. Kebede on 08/28/19; she has been managing her own ERIC drains and doing well with that care. She has a prescription for Percocet at home as needed and she can also use ibuprofen. REBECCA CARLIN, SILO WORKER [id number]/[facility] #: [id number] MORENITA
[2019-08-22 15:19] VITALS: BP 145/62
== END 2019-08-22 16:40 | disposition home or self-care (01) ==
LOC: OR 07:25 → SSU 14:28
PROVIDERS: ADMIT Surgery; ATTEND Surgery
DX: K43.2 Incisional hernia without obstruction or gangrene (principal); E11.9 Type 2 diabetes mellitus without complications; I10 Essential (primary) hypertension; E66.01 Morbid (severe) obesity due to excess calories; K21.9 Gastro-esophageal reflux disease without esophagitis; E28.2 Polycystic ovarian syndrome; E03.9 Hypothyroidism, unspecified; N94.3 Premenstrual tension syndrome; J45.909 Unspecified asthma, uncomplicated; D50.9 Iron deficiency anemia, unspecified; L71.9 Rosacea, unspecified
CPT/HCPCS: 81025; 88302; 90471; 90686; 96374; 96375; 96376; A9270-GY; C1781; G0008; G0378; J0330; J0690; J1100; J1170; J1240; J1885; J2250; J2405; J2704; J3010

== ENCOUNTER 2019-08-28 20:42 | Emergency (ER) | payer BC, MEDICAID ==
--- OUTSIDE RECORDS SUMMARY | 2019-08-28 21:06 | XMS REPORT | Continuity of Care Document ---
:1970 External Reference #:[id number] Author Name VALENTINO North (transmitted by agent of provider Carol Sears) Address [address] [place] [address] Care Team Providers Name Role Phone Nicolette Cardona MD - Family Care Team Information Head Baggage Porter Medicine Problems Active Problems Provider Date Obstructive sleep apnea syndrome Nita Kellogg DNP, RN, TRACK REPAIRER HELPER- Onset: Incomplete rotator cuff tear or Reese Ferrer MD Onset: 02/11/2019 rupture of right shoulder, not specified as traumatic Social History Type Date Description Comments Sex Unknown ETOH Use Denies alcohol use Tobacco Use Start: Unknown Patient has never smoked Recreational Drug Use Denies Drug Use Smoking Status Reviewed: 08/28/19 Patient has never smoked Exercise Type/Frequency Exercises regularly Allergies, Adverse Reactions, Alerts Active Allergies Reaction Severity Comments Date Bactrim rash 04/08/2015 Macrobid sunburn like rash 04/08/2015 Medications Active Medications SIG Qnty Indications Ordering Provider Date Metformin HCL 1 by mouth twice Unknown 04/07/2015 1000mg a day Tablets Levothyroxine Sodium every day Unknown 04/07/2015 300mcg Protonix 1 by mouth every Unknown 04/07/[address] day Sertraline HCL 1 by mouth every Unknown 04/07/2015 50mg Tablets day Iron 1 by mouth every Unknown 04/07/2015 325(65Fe) mg Tablets day Lisinopril 1 by mouth every Unknown 40mg Tablets day Clobetasol Propionate apply to areas 2 Unknown 0.05% times per day Cream Proair HFA 2 puffs by mouth Unknown 108(90Base) every 4 hours as mcg/Act Aerosol needed Ibuprofen as needed Unknown 200mg Capsules Nasonex two sprays each Unknown 50mcg/Act nostril once Suspension daily as needed Vitamin D High Potency 2 by mouth every Unknown day 1000Unit Capsules Januvia 2 tabs by mouth Unknown 50mg Tablets every day Levothyroxine Sodium 1 tab daily Nicolette Cardona 300mcg MD [place] Tablets Pantoprazole Sodium 1 tab daily Nicolette Cardona 40mg MD [place] Tablets DR History Medications Oxycodone-Acetaminophen 1--2 tab by 15tabs Charlene Haile 08/11/2019 - 5-325mg Tablets mouth every 4- MD Tarun Unknown 6 hours as needed for pain Immunizations CPT Code Status Date Vaccine Lot # [id number] Given 04/08/2015 Fluvirin Im 3Yrs And Older Vital Signs Date Vital Result Comment 08/28/2019 1:40pm Heart Rate 84 /min Respiratory Rate 16 /min Body Temperature 97.7 F 08/26/2019 11:49am Heart Rate 78 /min BP Systolic Sitting 124 mmHg BP Diastolic Sitting 80 mmHg Respiratory Rate 18 /min Body Temperature 97.7 F Results Test Date Facility Test Result H/L Range Note Laboratory test 08/20/2019 [facility] Point of Care 190 mg/dL High 70-100 [address] [place] [address] [phone] Laboratory test 08/20/2019 [facility] Point of Care 130 mg/dL High 70-100 [address] [place], [place] [id number] [phone] Plating Foreman: [id number] Plating Foreman: [id number] Procedures Date Code Description Status 09/13/2017 [id number] Colonoscopy Completed Medical Devices Description No Information Available Encounters Type Date Location Provider Dx Diagnosis Office Visit 07/08/2019 Surgical Evan Kebede, K43.2 Incisional hernia 9:[facility]a [facility], FACS without obstruction or gangrene Office Visit 05/20/2019 [facility] Reese Ferrer, S46.011D Strain of 11:00a at [place] MD musc/tend the rotator cuff of right shoulder, subs M25.511 Pain in right shoulder Office Visit 03/14/2019 8:15a [facility] Reese Ferrer, S46.011D Strain of at [facility] musc/tend the rotator cuff of right shoulder, subs M25.511 Pain in right shoulder Assessments Date Code Description Provider 08/26/2019 K43.2 Incisional hernia without obstruction or Evan Kebede MD , FACS gangrene 08/11/2019 K43.2 Incisional hernia without obstruction or VALENTINO North gangrene 08/11/2019 Z01.818 Encounter for other preprocedural VALENTINO North examination 07/08/2019 K43.2 Incisional hernia without obstruction or Evan Kebede MD , FACS gangrene 05/20/2019 S46.011D Strain of muscle(s) and tendon(s) of the Reese Ferrer MD rotator cuff of rig 05/20/2019 M25.511 Pain in right shoulder Reese Ferrer MD 03/14/2019 S46.011D Strain of muscle(s) and tendon(s) of the Reese Ferrer MD rotator cuff of rig 03/14/2019 M25.511 Pain in right shoulder Reese Ferrer MD Plan of Treatment No Information Available Functional Status Description No Information Available Mental Status Description No Information Available Referrals Description No Information Available
--- OUTSIDE RECORDS SUMMARY | 2019-08-28 21:07 | XMS REPORT | Continuity of Care Document ---
:1970 External Reference #:[id number] Author Name VALENTINO North (transmitted by agent of provider Kathy Ayers) Address [address] [place] [address] Care Team Providers Name Role Phone Nicolette Cardona MD - Family Care Team Information Livestock Agent [phone] Medicine Problems Active Problems Provider Date Obstructive sleep apnea syndrome Nita Kellogg DNP, RN, DEMAND MANAGER- Onset: Incomplete rotator cuff tear or Reese Ferrer MD Onset: 02/11/2019 rupture of right shoulder, not specified as traumatic Social History Type Date Description Comments Sex Unknown ETOH Use Denies alcohol use Tobacco Use Start: Unknown Patient has never smoked Recreational Drug Use Denies Drug Use Smoking Status Reviewed: 08/11/19 Patient has never smoked Exercise Type/Frequency Exercises [...] Nicolette Cardona 40mg MD [place] Tablets DR Simms CPT Code Status Date Vaccine Lot # [id number] Given 04/08/2015 Fluvirin Im 3Yrs And Older Vital Signs Date Vital Result Comment 08/11/2019 10:20am Height 64.75 inches 5'4.75" Weight 255.00 lb Heart Rate 60 /min BP Systolic Sitting 128 mmHg BP Diastolic Sitting 80 mmHg Respiratory Rate 16 /min Body Temperature 97.4 F BMI (Body Mass Index) 42.8 kg/m2 07/08/2019 9:11am Height 64.75 inches 5'4.75" Weight 255.00 lb Heart Rate 66 /min BP Systolic Sitting 110 mmHg BP Diastolic Sitting 70 mmHg Respiratory Rate 16 /min Body Temperature 97.7 F BMI (Body Mass Index) 42.8 kg/m2 Results Description No Information Available Procedures Date Code Description Status 09/13/2017 97819978 Colonoscopy Completed Medical Devices Description No Information Available Encounters Type Date Location Provider Dx Diagnosis Office Visit 07/08/2019 Surgical Evan Kebede, K43.2 Incisional hernia 9:00a [facility], [facility] without obstruction or gangrene Office Visit 05/20/2019 Orthopedic Reese Ferrer S46.011D Strain of 11:00a [facility] mak/cris the rotator cuff of right shoulder, subs M25.511 Pain in right shoulder Office Visit 03/14/2019 8:15a Orthopedic Reese Ferrer S46.011D Strain of Services Of MD mak/cris the Patel.MThelmaAThelma rotator cuff of right shoulder, subs M25.511 Pain in right shoulder Office Visit 02/11/2019 2:30p Orthopedic Zaneb Yaseen, S46.011D Strain of Services Of MD mak/cris the C.M.A. rotator cuff of right shoulder, subs Assessments Date Code Description Provider 08/11/2019 K43.2 Incisional hernia without obstruction or VALENTINO North gangrene 08/11/2019 Z01.818 Encounter for other preprocedural VALENTINO North examination 07/08/2019 K43.2 Incisional hernia without obstruction or Evan Kebede MD , FACS gangrene 05/20/2019 S46.011D Strain of muscle(s) and tendon(s) of the Reese Ferrer MD rotator cuff of [facility] 05/20/2019 M25.511 Pain in right shoulder Reese Ferrer MD 03/14/2019 S46.011D Strain of muscle(s) and tendon(s) of the Reese Ferrer MD rotator cuff of rig 03/14/2019 M25.511 Pain in right shoulder Reese Ferrer MD 02/11/2019 S46.011D Strain of muscle(s) and tendon(s) of the Reese Ferrer MD rotator cuff of [facility] Plan of Treatment Future Appointment(s):08/20/2019 7:30 am - Ruth Santos NP at [facility]08/28/2019 10:00 am - Evan Kebede MD, FACS at [facility]08/20/2019 7:30 am - Evan Kebede MD, FACS at [facility]08/11/2019 - Michael Morales, PAK43.2 Incisional hernia without obstruction or ixuakpcsX82.818 Encounter for other preprocedural examination Functional Status Description No Information Available Mental Status Description No Information Available Referrals Description No Information Available
--- OUTSIDE RECORDS SUMMARY | 2019-08-28 21:07 | XMS REPORT | Continuity of Care Document ---
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 Onset: 07/07/2015 Myopia Jeff Pat O.D. Onset: 07/06/2014 Type 2 diabetes mellitus Jeff Pat O.D. Onset: 07/06/2014 Borderline glaucoma Jeff Pat O.D. Onset: 07/06/2014 Social History Type Date Description Comments Sex Unknown ETOH Use Rarely consumes alcohol Tobacco Use Start: Unknown Patient has never smoked Smoking Status Reviewed: 07/29/19 Patient has never smoked Allergies, Adverse Reactions, Alerts Active Allergies Reaction Severity Comments Date Antibiotics 07/06/2014 Seasonal 07/06/2014 Macrobid Sun burn like rash 07/06/2014 Bactrim Sore red rash 07/06/2014 Medications Active Medications SIG Qnty Indications Ordering Provider Date Levothyroxine Sodium Unknown Tablets Zoloft Unknown Tablets Iron Supplement Unknown 325(65Fe) mg Tablets Metformin HCL Three times a Unknown 500mg Tablets day Protonix Once daily Unknown 40mg Tablets DR Fatimah Cardona MD, [facility] 20mg Tablets Vitamin D 1 by mouth Unknown 2000Unit Tablets every day Januvia Unknown 100mg Tablets Immunizations Description No Information Available Vital Signs Date Vital Result Comment 06/17/2018 8:47am Intraocular Pressure Right Eye 21 mmHg Intraocular Pressure Left Eye 22 mmHg 01/19/2017 2:48pm Intraocular Pressure Right Eye 19 mmHg Intraocular Pressure Left Eye 19 mmHg Results Description No Information Available Procedures Description No Information Available Medical Devices Description No Information Available Encounters Description No Information Available Assessments Date Code Description Provider 07/30/2019 H52.13 Myopia, bilateral Jeff Sood, OD 07/30/2019 E11.9 Type 2 diabetes mellitus without complications Jeff Sood, OD 07/30/2019 H40.013 Open angle with borderline findings, low risk, Jeff Sood, OD bilateral Plan of Treatment 07/30/2019 - Jeff Sood, ODH52.13 Myopia, otqvcwuztE40.9 Type 2 diabetes mellitus without qocwngqffquhtW28.013 Open angle with borderline findings, low risk, bilateralFollow up:6 mos VF/OCT nerve, sooner PRN Functional Status Description No Information Available Mental Status Description No Information Available Referrals Description No Information Available
--- OUTSIDE RECORDS SUMMARY | 2019-08-28 21:07 | XMS REPORT | Continuity of Care Document ---
:1970 External Reference #:[id number] Author Name Evan Kebede MD, FACS (transmitted by agent of provider Carol Sears) Address [address] [place] [address] Care Team Providers Name Role Phone Nicolette Cardona MD - Family Care Team Information Analysis Director Medicine Problems Active Problems Provider Date Obstructive sleep apnea syndrome Nita Kellogg DNP, RN, RN RADIATION ONCOLOGY- Onset: Incomplete rotator cuff tear or Reese Ferrer MD Onset: 02/11/2019 rupture of right shoulder, not specified as traumatic Social History Type Date Description Comments Sex Unknown ETOH Use Denies alcohol use Tobacco Use Start: Unknown Patient has never smoked Recreational Drug Use Denies Drug Use Smoking Status Reviewed: 07/08/19 Patient has never smoked Exercise Type/Frequency Exercises [...] Older Vital Signs Date Vital Result Comment 07/08/2019 9:11am Height 64.75 inches 5'4.75" Weight 255.00 lb Heart Rate 66 /min BP Systolic Sitting 110 mmHg BP Diastolic Sitting 70 mmHg Respiratory Rate 16 /min Body Temperature 97.7 F BMI (Body Mass Index) 42.8 kg/m2 05/20/2019 11:01am Height 64 inches 5'4" Weight 257.00 lb Heart Rate 78 /min Respiratory Rate 18 /min Pain Level 5 BMI (Body Mass Index) 44.1 kg/m2 Results Description No Information Available Procedures Date Code Description Status 09/13/2017 [id number] Colonoscopy Completed Medical Devices Description No Information Available Encounters Type Date Location Provider Dx Diagnosis Office Visit 05/20/2019 Orthopedic Reese Ferrer MD S46.011D Strain of 11:00a [facility]/cris the rotator cuff of right shoulder, subs M25.511 Pain in right shoulder Office Visit 03/14/2019 8:15a Orthopedic Reese Ferrer S46.011D Strain of Services Of MD mak/cris the C.M.A. rotator cuff of right shoulder, subs M25.511 Pain in right shoulder Office Visit 02/11/2019 2:30p Orthopedic Reese Ferrer S46.011D Strain of Services Of MD mak/cris the C.M.A. rotator cuff of right shoulder, subs Office Visit 01/28/2019 10:30a Orthopedic Kartik Velasco M25.511 Pain in right Services Of MD shoulder C.M.A. M62.81 Muscle weakness (generalized) S43.421A Sprain of right rotator cuff capsule, initial encounter Assessments Date Code Description Provider 07/08/2019 K43.2 Incisional hernia without obstruction or [...] Reese Ferrer MD rotator cuff of rig 01/28/2019 M25.511 Pain in right shoulder Kartik Velasco MD 01/28/2019 M62.81 Muscle weakness (generalized) Kartik Velasco MD 01/28/2019 S43.421A Sprain of right rotator cuff capsule, Kartik Velasco MD initial encounter Plan of Treatment Future Appointment(s):08/28/2019 10:00 am - Evan Kebede MD, FACS at [facility]08/11/2019 10:15 am - Evan Kebede MD, FACS at [facility]08/11/2019 10:00 am - Michael Morales PA at [facility]08/20/2019 7:30 am - Michael Morales PA at [facility]08/20/2019 7:30 am - Evan Kebede MD, FACS at [facility]07/08/2019 - Evan Kebede MD, FACSK43.2 Incisional hernia without obstruction or gangreneFollow up:operating roomInstructions: avoid heavy lifting Goals 07/08/2019 - Evan Kebede MD, FACSK43.2 Incisional hernia without obstruction or gangrenecontinue with weight loss Functional Status Description No Information Available Mental Status Description No Information Available Referrals Description No Information Available
--- OUTSIDE RECORDS SUMMARY | 2019-08-28 21:07 | XMS REPORT | Continuity of Care Document ---
:1970 External Reference #:[id number] Author Name Evan Kebede MD, FACS (transmitted by agent of provider Carol Sears) Address [address] [place] [address] Care Team Providers Name Role Phone Nicolette Cardona MD - Family Care Team Information Private Client Advisor Medicine Problems Active Problems Provider Date Obstructive sleep apnea syndrome Nita Kellogg DNP, RN, R&D LAB TECHNICIAN- Onset: Incomplete rotator cuff tear or Reese Ferrer MD Onset: 02/11/2019 rupture of right shoulder, not specified as traumatic Social History Type Date Description Comments Sex Unknown ETOH Use Denies alcohol use Tobacco Use Start: Unknown Patient has never smoked Recreational Drug Use Denies Drug Use Smoking Status Reviewed: 08/26/19 Patient has never smoked Exercise Type/Frequency Exercises [...] Nicolette Cardona 40mg MD [place] Tablets DR Evita Medications Oxycodone-Acetaminophen 1--2 tab by 15tabs Charlene Haile 08/11/2019 - 5-325mg Tablets mouth every 4- MD Tarun Unknown 6 hours as needed for pain Immunizations CPT Code Status Date Vaccine Lot # [id number] Given 04/08/2015 Fluvirin Im 3Yrs And Older Vital Signs Date Vital Result Comment 08/26/2019 11:49am Heart Rate 78 /min BP Systolic Sitting 124 mmHg BP Diastolic Sitting 80 mmHg Respiratory Rate 18 /min Body Temperature 97.7 F 08/11/2019 10:20am Height 64.75 inches 5'4.75" Weight 255.00 lb Heart Rate 60 /min BP Systolic Sitting 128 mmHg BP Diastolic Sitting 80 mmHg Respiratory Rate 16 /min Body Temperature 97.4 F BMI (Body Mass Index) 42.8 kg/m2 Results Test Date Facility Test Result H/L Range Note Laboratory test 08/20/2019 [facility] Point of Care 190 mg/dL High 70-100 [address] [place] [address] [phone] Laboratory test 08/20/2019 [facility] Point of Care 130 mg/dL High 70-100 [address] [place] [address] [phone] 1 Quality Tester: [id number] 2 Quality Tester: [id number] Procedures Date Code Description Status 09/13/2017 [id number] Colonoscopy Completed Medical Devices Description No Information Available Encounters Type Date Location Provider Dx Diagnosis Office Visit 07/08/2019 Surgical Evan Kebede, K43.2 Incisional hernia 9:00a [facility], FACS without obstruction or gangrene Office Visit 05/20/2019 [facility] Reese Ferrer, S46.011D Strain of 11:00a at [place] MD mak/tend the rotator cuff of right shoulder, subs M25.511 Pain in right shoulder Office Visit 03/14/2019 8:15a [facility] Reese Ferrer, S46.011D Strain of at [place] mak/tend the rotator cuff of right shoulder, subs [...] shoulder Reese Ferrer MD Plan of Treatment Future Appointment(s):09/02/2019 10:15 am - Evan [facility] MD, [facility]08/26/2019 - Evan Kebede MD, FACSK43.2 Incisional hernia without obstruction or gangreneFollow up:No need for appointment later this week. Make appointment for 1 week from todayInstructions:May shower. Antibiotic ointment daily. Continue to record ERIC drain output. Functional Status Description No Information Available Mental Status Description No Information Available Referrals Description No Information Available
--- NOTE | 2019-08-28 22:58 | ED ---
HPI Febrile Illness - HPI Summary HPI Summary: Pt is a 49 y/o F presenting to the ED for a chief complaint of fever. Pt had surgery on 08/20/19 for a hernia repair. Pt had a right drain removed on by VALENTINO Morales, who did not believe that the either of the sites were infected. While taking a shower on 08/28/19, pt noticed erythema, soreness, and purulent drainage at the left drain site. Pt also states she had an at home temperature reading by oral thermometer of 101.4 F. Pt called the office who recommended the pt go to the ED if she was concerned. 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 Pt has a PMHx of DM, HTN controlled with medications, and hypothyroidism. Pt has cholecystectomy in 2000, carpal tunnel surgery, and a hemicolectomy in October 2018. - History of Current Complaint Chief Complaint: EDFever Time Seen by Provider: 08/28/19 22:23 Hx Obtained From: Patient Hx Last Menstrual Period: 09/07/18 Onset/Duration: Started Hours Ago, Atraumatic, Still Present Timing: Lasting Hours Initial Severity: Moderate Current Severity: Moderate Pain Intensity: 6 Pain Scale Used: 0-10 Numeric Aggravating Factors: Nothing Alleviating Factors: Nothing Associated Signs and Symptoms: Drainage - Purulence from left drain site, Recent Surgery - Hernia repair, Other: - Positive erythema and soreness at left drain site; positive fever - Additional Pertinent History Primary Care Physician: [id number] - Allergy/Home Medications Allergies/Adverse Reactions: Allergies Allergy/AdvReac Type Severity Reaction Status Date / Time nitrofurantoin Allergy Rash Verified 08/28/19 20:59 [From Macrobid] sulfamethoxazole Allergy Rash Verified 08/28/19 20:59 [From Bactrim] trimethoprim [From Bactrim] Allergy Rash Verified 08/28/19 20:59 PMH/Surg Hx/FS Hx/Imm Hx Previously Healthy: Yes Endocrine/Hematology History: Reports: Hx Diabetes - TYPE II- ON ORAL MEDICATION FOR, Hx Thyroid Disease - HYPOTHROID, Hx Anemia - SECONDARY TO MENSTRUAL CYCLE Cardiovascular History: Reports: Hx Hypertension - ON MEDICATION FOR Denies: Hx Hypercholesterolemia, Hx Pacemaker/ICD, Hx Peripheral Vascular Disease, Other Cardiovascular Problems/Disorders Respiratory History: Reports: Hx Asthma - secondary to allergies, Hx Sleep Apnea - NO MACHINE Denies: Hx Chronic Obstructive Pulmonary Disease (COPD), Other Respiratory Problems/Disorders GI History: Reports: Hx Gastroesophageal Reflux Disease - ON MEDICATION FOR Denies: Hx Jaundice, Hx Ulcer, Other GI Disorders History: Denies: Hx Renal Disease, Other Problems/Disorders Musculoskeletal History: Reports: Hx Arthritis - RIGHT SHOULDER AND LEFT KNEE, Other Musculoskeletal History - RIGHT SHOULDER TORN ROTATOR CUFF Denies: Hx Osteoporosis Sensory History: Reports: Hx Contacts or Glasses - GLASSES Denies: Hx Cataracts, Hx Glaucoma, Hx Hearing Aid Opthamlomology History: Reports: Hx Contacts or Glasses - GLASSES Denies: Hx Cataracts, Hx Glaucoma Neurological History: Denies: Hx Headaches, Hx Seizures, Hx Transient Ischemic Attacks (TIA), Other Neuro Impairments/Disorders Psychiatric History: Reports: Other Psychiatric Issues/Disorders - premenstral irritability Denies: Hx Anxiety, Hx Depression, Hx Panic Disorder - Cancer History Hx Chemotherapy: No Hx Radiation Therapy: No - Surgical History Surgical History: Yes Surgery Procedure, Year, and Place: carpel tunnel w/ tendon release (2002 and 2003). Gall bladder removed (2000). 10/2017 RIGHT HEMICOLECTOMY Hx Anesthesia Reactions: No Infectious Disease History: No Infectious Disease History: Denies: Hx Hepatitis, Hx Human Immunodeficiency Virus (HIV), History Other Infectious Disease, Traveled Outside the [place] in Last 30 Days - Family History Known Family History: Negative: Diabetes - Social History Alcohol Use: None Hx Substance Use: No Substance Use Type: Reports: None Hx Tobacco Use: No Smoking Status (MU): Never Smoked Tobacco Have You Smoked in the Last Year: No Review of Systems Positive: Fever - 101.4 F, in vitals, 97.9 F Positive: Other - Positive erythema, soreness, and purulence with drainage at left drain site. All Other Systems Reviewed And Are Negative: Yes Physical Exam - Summary Physical Exam Summary: Constitutional: Well-developed, Well-nourished, Alert. (-) Distressed Skin: Warm, Dry. Well healing midline incision, right incision is clean and dry , left drain site has erythema with tenderness and purulence. HENT: Normocephalic; Atraumatic Eyes: Conjunctiva normal Neck: Musculoskeletal ROM normal neck. (-) JVD, (-) Stridor, (-) Nuchal rigidity Cardio: Rhythm regular, rate normal, Heart sounds normal; Intact distal pulses; Radial pulses are 2+ and symmetric. (-) Murmur Pulmonary/Chest wall: Effort normal. (-) Respiratory distress, (-) Wheezes, (-) Rales Abd: Soft, (-) tenderness, (-) Distension, (-) Guarding, (-) Rebound Musculoskeletal: (-) Edema Lymph: (-) Cervical adenopathy Neuro: Alert, Oriented x3 Psych: Mood and affect Normal Triage Information Reviewed: Yes Vital Signs On Initial Exam: Initial Vitals Temp Pulse Resp BP Pulse Ox 97.9 F 80 16 151/64 97 08/28/19 20:50 08/28/19 20:50 08/28/19 20:50 08/28/19 20:50 08/28/19 20:50 Vital Signs Reviewed: Yes Procedures - Sedation Patient Received Moderate/Deep Sedation with Procedure: No Diagnostics - Vital Signs Vital Signs Temp Pulse Resp BP Pulse Ox 08/28/19 20:50 97.9 F 80 16 151/64 97 - Laboratory Result Diagrams: 08/28/19 22:56 08/28/19 22:56 Lab Statement: Any lab studies that have been ordered have been reviewed, and results considered in the medical decision making process. Course/Dx - Course Course Of Treatment: 49 y/o F w recent hernia repair 8 days ago p/w drainage from L old drain site. - mild erythema to L drain site w scant purulent drainage. - WBC 14, afebrile here but took motrin. Will cover w clindamycin and will see Dr. Kebede tomorrow. - Diagnoses Provider Diagnoses: Post-operative complication, Fever Discharge ED - Sign-Out/Discharge Documenting (check all that apply): Patient Departure - Discharge - Discharge Plan Condition: Stable Disposition: HOME Patient Education Materials: Cellulitis (ED) Referrals: Suzanna Yeung MD [Primary Care Provider] - Additional Instructions: You were seen in the ER for a post operative fever. We discussed your case with our construction project assistant surgeon who states you can followup tomorrow in the clinic. Please take clindamycin tomorrow AM. Return for worsening pain, fevers, drainage from the area. It was a pleasure taking care of you today! - Billing Disposition and Condition Condition: STABLE Disposition: Home - Attestation Statements Document Initiated by Scribe: Yes Documenting Scribe: Velma Collins Provider For Whom Scribe is Documenting (Include Credential): José Luis Will MD Scribe Attestation: I, Velma Collins, scribed for José Luis Will MD on 08/29/19 at 0218. Scribe Documentation Reviewed: Yes Provider Attestation: The documentation as recorded by the scribe, Velma Collins accurately reflects the service I personally performed and the decisions made by me, José Luis Will MD Status of Scribe Document: Viewed Consult Consult: At 23:13, Dr. Haile states that pt can follow up with Dr. Kebede in the office tomorrow.
[2019-08-28 23:03] LABS: ABS Basophils 0.1 10^3/ul (0-0.2); ABS Eosinophils 0.6 10^3/ul (0-0.6); ABS Lymphocytes 2.5 10^3/ul (1.0-4.8); ABS Monocytes 0.5 10^3/ul (0-0.8); ABS Neutrophils 10.2 10^3/ul (1.5-7.7); Eosinophil % 4.6 %; Hematocrit 33 % (35-47); Hemoglobin 10.9 g/dL (12.0-16.0); Mean Corpuscular HGB Conc 33 g/dL (31-36); Mean Corpuscular Hemoglobin 31 pg (27-31); Mean Corpuscular Volume 92 fL (80-97); Mean Platelet Volume 6.9 fL (7.4-10.4); Platelet Count 269 10^3/uL (150-450); Red Blood Count 3.58 10^6 /uL (3.70-4.87); Red Cell Distribution Width 14 % (10-15)
[2019-08-28] MEDS ORDERED: Clindamycin CAP* 150 MG PO ONE ×2 (23:15→23:29)
[2019-08-28 23:20] LABS: Albumin 3.7 g/dL (3.2-5.2); Albumin/Globulin Ratio 1.1 (1-3); BUN/Creatinine Ratio 16.9 (8-20); Calcium 9.1 mg/dL (8.6-10.3); EGFR African American 96.4 (>60); EGFR Non-African American 79.7 (>60); Globulin 3.4 g/dL (2-4); Total Bilirubin 0.4 mg/dL (0.2-1.0); Total Protein 7.1 g/dL (6.4-8.9)
[2019-08-28 23:41] VITALS: BP 133/78
== END 2019-08-28 23:41 | disposition home or self-care (01) ==
LOC: ED 20:42
DX: R50.82 Postprocedural fever (principal); R50.9 Fever, unspecified; E11.9 Type 2 diabetes mellitus without complications; Z79.84 Long term (current) use of oral hypoglycemic drugs; E03.9 Hypothyroidism, unspecified; I10 Essential (primary) hypertension; J45.909 Unspecified asthma, uncomplicated; K21.9 Gastro-esophageal reflux disease without esophagitis
CPT/HCPCS: 36415; 80053; 85025; 99282; A9270-GY